=== PATIENT | female | born 1985 | race Two or more races ===

== ENCOUNTER 2018-08-03 11:54 | Inpatient (IN) | payer OTHER ==
[~2018-08-03] VITALS: Ht 152.4 cm; Wt 54.4 kg
[2018-08-03] MEDS ORDERED: SODIUM CHLORIDE 0.9% 1,000 ML IVB ONE (12:44)
[2018-08-03] MEDS ORDERED: PANTOPRAZOLE 40 MG/10 ML VIAL IV STA (12:44)
[2018-08-03] MEDS ORDERED: ONDANSETRON HCL 4 MG/2 ML VIAL IV ONE (12:45)
[2018-08-03] MEDS ORDERED: HYDROmorphone HCL 2 MG/ML VL IV ONE ×2 (12:45→15:30)
[2018-08-03 13:14] LABS: Basophils # (auto) 0 uL; Basophils % (auto) 0.1 % (0.0-2.0); Eosinophils # (auto) 0 uL; Eosinophils % (auto) 0.2 % (0.0-7.0); Hematocrit 39.2 % (36.0-46.0); Hemoglobin 12.9 g/dL (12.2-16.2); Lymphocytes # (auto) 0.7 uL; Mean Corpuscular Hemoglobin 28.5 pg (28.0-32.0); Mean Corpuscular Hgb Conc. 32.8 g/dL (32.0-36.0); Mean Corpuscular Volume 86.7 fL (80.0-100.0); Monocytes # (auto) 0.5 uL; Monocytes % (auto) 4.1 % (0.0-12.0); Neutrophils # (auto) 10.9 uL; Neutrophils % (auto) 89.6 % (37.0-80.0); Platelet Count (auto) 269 10^3/uL (140-450); Red Blood Cells 4.52 10^6/uL (4.0-5.20); Red Cell Distribution Width 14.9 % (11.8-14.3); White Blood Cell 12.1 10^3/uL (4.4-10.8)
[2018-08-03 13:32] LABS: Albumin 4.2 g/dL (3.4-5.0); BUN/Creatinine Ratio 12.2; Calcium 8.6 mg/dL (8.5-10.1); Potassium 3.5 mmol/L (3.5-5.1)
[2018-08-03 13:42] LABS: Bilirubin, Total 1.1 mg/dL (0.2-1.0); Total Protein 8.2 g/dL (6.4-8.2)
[2018-08-03] MEDS ORDERED: LORazepam 2MG/ML-1ML VIAL IV PRN (15:30)
[2018-08-03] MEDS ORDERED: ONDANSETRON HCL 4 MG/2 ML VIAL IV PRN (15:30)
[2018-08-03] MEDS ORDERED: NITROGLYCERIN 0.4 MG SL TAB SL PRN (15:30)
[2018-08-03] MEDS ORDERED: MORPHINE SULFATE 4 MG/ML SYR/VIAL IV PRN (15:30)
[2018-08-03] MEDS: SODIUM CHLORIDE 0.9% 1,000 ML IV SCH ×2 (16:59→22:15)
[2018-08-03] MEDS: HYDROmorphone HCL 2 MG/ML VL IV PRN ×2 (18:07→21:01)
--- NOTE | 2018-08-03 21:05 | NUR ---
Admission Note Pt admitted to room 221-A in stable cond and no s/s of any distress noted. Pt does c/o RUQ pain and denies any nausea at this time. Pt oriented to room and procedures and POC discussed with pt and pt verbalizes understanding. Pt encouraged to call for assist prn. Bed is low, wheels are locked, and call light is with in reach.
[2018-08-04] MEDS: HYDROmorphone HCL 2 MG/ML VL IV PRN ×7 (00:01→23:10)
[2018-08-04 05:00] VITALS: BP 142/90
[2018-08-04] MEDS: SODIUM CHLORIDE 0.9% 1,000 ML IV SCH ×3 (05:18→18:10)
[2018-08-04 08:04] LABS: Basophils # (auto) 0 uL; Basophils % (auto) 0.1 % (0.0-2.0); Eosinophils # (auto) 0.1 uL; Eosinophils % (auto) 0.5 % (0.0-7.0); Hemoglobin 10.5 g/dL (12.2-16.2); Lymphocytes # (auto) 1.1 uL; Lymphocytes % (auto) 7.5 % (10.0-50.0); Mean Corpuscular Hemoglobin 28.7 pg (28.0-32.0); Mean Corpuscular Hgb Conc. 32.8 g/dL (32.0-36.0); Mean Corpuscular Volume 87.4 fL (80.0-100.0); Monocytes # (auto) 0.7 uL; Monocytes % (auto) 4.7 % (0.0-12.0); Neutrophils # (auto) 12.6 uL; Neutrophils % (auto) 87.2 % (37.0-80.0); Platelet Count (auto) 216 10^3/uL (140-450); Red Blood Cells 3.66 10^6/uL (4.0-5.20); Red Cell Distribution Width 14.7 % (11.8-14.3); White Blood Cell 14.4 10^3/uL (4.4-10.8)
[2018-08-04 08:25] LABS: Potassium 3.3 mmol/L (3.5-5.1)
[2018-08-04 08:38] LABS: BUN/Creatinine Ratio 5.7
[2018-08-04 09:00] VITALS: BP 143/88
[2018-08-04] MEDS ORDERED: cefTRIAXone 1GM/50ML D5W 50 ML IV ONE (11:00)
[2018-08-04] MEDS ORDERED: IOHEXOL 300 MG/ML 100ML BOTTLE IJ ONE (11:09)
[2018-08-04] MEDS ORDERED: PANTOPRAZOLE 40 MG/10 ML VIAL IV ONE (12:45)
[2018-08-04 13:00] VITALS: BP 141/80
[2018-08-04] MEDS: metroNIDAZOLE 500MG/100ML 100 ML IV SCH ×2 (13:00→17:40)
[2018-08-04 14:28] LABS: Hematocrit 32.4 % (36.0-46.0); Hemoglobin 10.8 g/dL (12.2-16.2)
[2018-08-04] MEDS: POTASSIUM CHL 20MEQ/100ML 100 ML IV SCH ×2 (14:31→18:47)
[2018-08-04 17:00] VITALS: BP 124/80
[2018-08-04 19:07] LABS: Hematocrit 33.7 % (36.0-46.0); Hemoglobin 11.1 g/dL (12.2-16.2)
--- NOTE | 2018-08-04 19:40 | NUR ---
Opening shift Note ARMAND called with report of heart rate up to 140's. Pt is up in the rest room with dry heaves. Pt c/o nausea but no vomiting. Will medicate with Zofran per orders. Assisted pt back to bed. POC discussed with pt and pt verbalizes understanding. Bed is low, wheels are locked, and call light is with in reach. Pt heart rate back down to 90's.
[2018-08-04 19:57] LABS: Urine Bacteria NONE SEEN /hpf (None Seen); Urine Blood Negative /uL (Negative); Urine Specific Gravity 1.013 (1.001-1.035); Urine WBC 3 /hpf (0 - 5)
[2018-08-04 22:00] VITALS: BP 124/80
[2018-08-04] MEDS: PANTOPRAZOLE 40 MG/10 ML VIAL IV SCH (23:10)
[2018-08-05 01:05] LABS: Hematocrit 30.8 % (36.0-46.0)
[2018-08-05] MEDS: SODIUM CHLORIDE 0.9% 1,000 ML IV SCH ×4 (01:17→23:30)
[2018-08-05] MEDS: HYDROmorphone HCL 2 MG/ML VL IV PRN ×6 (02:32→22:10)
[2018-08-05 05:00] VITALS: BP 114/67
[2018-08-05] MEDS: metroNIDAZOLE 500MG/100ML 100 ML IV SCH ×4 (06:19→18:15)
[2018-08-05 07:16] LABS: Basophils # (auto) 0 uL; Basophils % (auto) 0.4 % (0.0-2.0); Eosinophils # (auto) 0.2 uL; Eosinophils % (auto) 1.9 % (0.0-7.0); Hematocrit 29.3 % (36.0-46.0); Hemoglobin 9.9 g/dL (12.2-16.2); Lymphocytes # (auto) 1.4 uL; Lymphocytes % (auto) 14.1 % (10.0-50.0); Mean Corpuscular Hemoglobin 29.8 pg (28.0-32.0); Mean Corpuscular Hgb Conc. 33.7 g/dL (32.0-36.0); Mean Corpuscular Volume 88.4 fL (80.0-100.0); Monocytes # (auto) 0.5 uL; Monocytes % (auto) 5.7 % (0.0-12.0); Neutrophils # (auto) 7.5 uL; Neutrophils % (auto) 77.9 % (37.0-80.0); Nucleated Red Blood Cells % 0.1 %; Platelet Count (auto) 201 10^3/uL (140-450); Red Blood Cells 3.32 10^6/uL (4.0-5.20); Red Cell Distribution Width 14.9 % (11.8-14.3); White Blood Cell 9.7 10^3/uL (4.4-10.8)
[2018-08-05 07:18] LABS: Albumin 2.9 g/dL (3.4-5.0); BUN/Creatinine Ratio 9.1; Calcium 7.8 mg/dL (8.5-10.1); INR 1.06 (0.9-1.15); Partial Thromboplastin Time 34.1 sec (23.78-33.04); Potassium 3.7 mmol/L (3.5-5.1); Prothrombin Time 11.3 sec (9.27-12.13)
[2018-08-05 07:22] LABS: Amylase 71 U/L (25-115); Bilirubin, Total 0.6 mg/dL (0.2-1.0); Lipase 363 U/L (73-393); Total Protein 6.5 g/dL (6.4-8.2)
[2018-08-05 08:00] VITALS: BP 111/65
[2018-08-05 08:24] VITALS: BP 111/65
--- NOTE | 2018-08-05 08:46 | NUR ---
Opening Shift Note Assumed care of patient, awake and alert. No S/S of distress/SOB or pain. Instructed on POC and to call for assist PRN, will continue to monitor for changes Q1hr and PRN. Bed locked in lowest position with two side rails up and call light in reach, patient is under no signs and symptoms of distress at this time. Fluids NS running at 150ml.
[2018-08-05] MEDS: cefTRIAXone 1GM/50ML D5W 50 ML IV SCH (09:31)
[2018-08-05] MEDS: PANTOPRAZOLE 40 MG/10 ML VIAL IV SCH ×2 (09:31→22:12)
[2018-08-05 12:05] VITALS: BP 118/76
[2018-08-05 16:26] VITALS: BP 123/88
[2018-08-05 21:59] VITALS: BP 123/80
[2018-08-06 05:44] VITALS: BP 142/85
[2018-08-06] MEDS: metroNIDAZOLE 500MG/100ML 100 ML IV SCH ×3 (06:39→12:22)
[2018-08-06] MEDS: SODIUM CHLORIDE 0.9% 1,000 ML IV SCH ×2 (06:39→10:10)
[2018-08-06 06:47] LABS: Amylase 72 U/L (25-115); Lipase 481 U/L (73-393)
--- NOTE | 2018-08-06 07:30 | NUR ---
Open Shift Note Received report on patient, awake and sitting up in bed. Patient states they have no pain at this time. Shows no signs of distress. Discussed POC with patient. Bed in lowest locked position, side rails up x2, and call light within reach. Will continue to monitor.
[2018-08-06 08:53] VITALS: BP 123/79
--- NOTE | 2018-08-06 09:34 | NUR ---
Breakfast Patient ate low fat regular diet breakfast and tolerated well. States no pain after eating.
[2018-08-06] MEDS: PANTOPRAZOLE 40 MG/10 ML VIAL IV SCH (09:48)
[2018-08-06] MEDS: cefTRIAXone 1GM/50ML D5W 50 ML IV SCH (09:48)
[2018-08-06 13:06] VITALS: BP 128/86
[2018-08-06 13:43] VITALS: BP 128/86
--- NOTE | 2018-08-06 14:52 | NUR ---
Discharged Discharge instructions given as ordered. Encourage to follow up with PMD as instructed. All questions and concerns addressed. Patient verbalized understanding. Educated patient on importance of eating low fat meals. Patient verbalized understanding. IV removed with catheter intact, pressure dressing applied. Telemetry unit returned to ICU. Patient ambulated to vehicle with all personal belongings, accompanied by family member. No distress noted at time of departure.
== END 2018-08-06 14:42 | disposition home or self-care (01) | DRG 282 ==
LOC: ER 11:54 → TELE 15:30 → TELE-CENTR 21:04
PROVIDERS: ADMIT Nurse Practitioner Acute Care; ATTEND Nurse Practitioner Acute Care
DX: K85.00 Idiopathic acute pancreatitis without necrosis or infection (principal); R65.10 Systemic inflammatory response syndrome (SIRS) of non-infectious origin without acute organ dysfunction; R16.0 Hepatomegaly, not elsewhere classified; R18.8 Other ascites; E87.1 Hypo-osmolality and hyponatremia; Z88.2 Allergy status to sulfonamides; K76.0 Fatty (change of) liver, not elsewhere classified
CPT/HCPCS: 36415; 74176; 74177; 76705; 80048; 80053; 80061; 81001; 82150; 82270; 83690; 84702; 85014; 85018; 85025; 85045; 85610; 85730; 87086; 94761; 96361; 96374; 96375; C9113; G0378; J0696; J2405; J3480; J3490